=== PATIENT | male | born 1960 | race African-American/Black ===

== ENCOUNTER 2021-08-07 18:54 | Emergency (ER) | payer MEDICAID, OTHER, SELFPAY ==
--- NOTE | 2021-08-07 19:26 | ECG_ITS ---
Test Reason : PALPITATIONS Blood Pressure : / mmHG Vent. Rate : 065 BPM Atrial Rate : 065 BPM P-R Int : 176 ms QRS Dur : 102 ms QT Int : 398 ms P-R-T Axes : 039 004 075 degrees QTc Int : 413 ms Normal sinus rhythm Minimal voltage criteria for LVH, may be normal variant ( [place] product ) Possible Inferior infarct , age undetermined Abnormal ECG When compared with ECG of 23-NOV-2018 17:01, Borderline criteria for Inferior infarct are now Present Referred By: Generic ED Physician Electronically Signed By:Anirudh Spence
[2021-08-07 19:28] VITALS: BP 149/104; PULSE 64; RESP 18; TEMP 36.9; O2SAT 97; BMI 32.5
[2021-08-07 19:42] LABS: MANUAL DIFF FLAG NO
[2021-08-07 19:51] LABS: Basophils Percent Auto 0.4 % (0-2); Eosinophils Absolute Auto 0.1 X10*3/uL (0.0-0.4); Eosinophils Percent Auto 1.1 % (0-4); Hematocrit 40.2 % (42.0-52.0); Lymphocytes Absolute Auto 1.9 X10*3/uL (1.2-4.9); Lymphocytes Percent Auto 41.2 % (20-40); Mean Corpuscular HGB Conc 32.3 g/dl (31.0-36.0); Mean Corpuscular Hemoglobin 27.5 pg (27.0-33.0); Mean Platelet Volume 9.8 fL (9.4-12.4); Monocytes Absolute Auto 0.5 X10*3/uL (0.1-1.2); Monocytes Percent Auto 10.4 % (2-11); Neutrophils Absolute Auto 2.1 x10*3/uL (2.0-8.3); Neutrophils Percent Auto 46.9 % (45-73); Platelet Count 236 X10*3/uL (160-400); Red Blood Count 4.73 X10*6/uL (4.60-5.80); White Blood Count 4.5 X10*3/uL (4.8-10.8)
[2021-08-07 19:58] LABS: Anion Gap 13 (12-20); Blood Urea Nitrogen 15 mg/dL (9-16); Calcium 9.6 mg/dL (8.4-10.2); Carbon Dioxide 24 mmol/L (22-29); Chloride 109 mmol/L (96-108); Creatinine Clr Calc Pharmacy 71.3; Estimated Glomerular Filt Rate 59; Glucose Random 109 mg/dL (60-115); Potassium 3.8 mmol/L (3.3-5.1); Sodium 142 mmol/L (135-145)
[2021-08-07 20:03] LABS: Troponin-I High Sensitivity 8.4 ng/L (<3.5-35.0)
--- NOTE | 2021-08-07 21:59 | ED.ARRPALP ---
HPI - Arrhythmia/Palpitations General Chief Complaint: Arrhythmia/Palpitations Stated Complaint: irregular heartbeat Time Seen by Provider: 08/07/21 21:59 Source: patient Mode of arrival: ambulatory Limitations: no limitations History of Present Illness HPI narrative: Patient with hypertension on amlodipine and metoprolol in complaining of feeling of palpitation/extra beat for last 2 days got worse for last 6 hours when arrived heart rate was only 64 beats per minute EKG was without any PVCs. Also complaining of cramping in the right leg patient has evaluated by equipment hire manager last year with Holter monitoring and full cardiac workup was negative Related Data Allergies Allergy/AdvReac Type Severity Reaction Status Date / Time No Known Allergies Allergy Unverified 12/02/19 18:15 Review of Systems Review of Systems: Yes all other systems are reviewed and are negative REPLACED BY [facility] Social History Social History Alcohol intake: current Alcohol intake frequency: holidays/special occasions only Patient Tobacco Use Status: Never used Tobacco Use of substances other than those prescribed or required for medical reasons: No Advance Directives: No Advance Directives Information Provided: No Physical Exam Vital Signs: Vital Signs: Last Vital Signs Temp 98.5 F 08/08/21 00:02 Pulse 61 08/08/21 00:02 Resp 18 08/08/21 00:02 BP 154/93 H 08/08/21 00:02 Pulse Ox 98 08/08/21 00:02 BMI result Body Mass Index 32.5 Appearance: Alert. Oriented X3. No acute distress. Eyes: PERRLA, No Nystagmus ENT: Pharynx normal. Oral Mucosa moist Neck: Normal inspection. Neck supple. CVS: Normal heart rate and rhythm. Pulses normal. Respiratory: No respiratory distress. Equal air entry bilateral, no wheezing/rales/rhonchi Abdomen: Soft and nontender. Bowel sounds are present, no mass palpable, no CVA tenderness Skin: Skin warm and dry. Normal skin color. Normal skin turgor. Extremities: No lower extremity edema. No calf tenderness Neuro: Oriented X 3. No motor deficit. No sensory deficit.No cerebellar signs , cranial nerves II-XII intact MDM - Arrhythmia/Palpitations MDM Narrative Medical decision making narrative: No cardiac arrhythmia noted during stay in the ER vitals are stable cardiac enzyme negative patient had Holter monitoring and cardiac workup done a 1 year ago. Patient advised to follow with equipment hire manager/PCP Medical Records Attestation: I reviewed the patient's medical records. Lab Data Attestation: I reviewed the patient's lab results. Result diagrams: 08/07/21 19:38 08/07/21 19:38 Labs: Lab Results 08/07/21 08/07/21 08/07/21 Range/Units 19:38 19:38 19:38 WBC 4.5 L (4.8-10.8) X10*3/uL RBC 4.73 (4.60-5.80) X10*6/uL Hgb 13.0 L (14.0-18.0) g/dl Hct 40.2 L (42.0-52.0) % MCV 85.0 (80.0-98.0) fL MCH 27.5 (27.0-33.0) pg MCHC 32.3 (31.0-36.0) g/dl RDW 13.0 (11.0-16.0) % Plt Count 236 (160-400) X10*3/uL MPV 9.8 (9.4-12.4) fL Immature Gran % (Auto) 0.0 (0.0-0.4) % Neut % (Auto) 46.9 (45-73) % Lymph % (Auto) 41.2 H (20-40) % [place] % (Auto) 10.4 (2-11) % Eos % (Auto) 1.1 (0-4) % Baso % (Auto) 0.4 (0-2) % Lymph # (Auto) 1.9 (1.2-4.9) X10*3/uL [place] # (Auto) 0.5 (0.1-1.2) X10*3/uL Eos # (Auto) 0.1 (0.0-0.4) X10*3/uL Baso # (Auto) 0.0 (0.0-0.2) X10*3/uL Abs Immat Gran (auto) 0.00 (0.00-0.03) X10*3/uL Absolute Neuts (auto) 2.1 (2.0-8.3) x10*3/uL Absolute Nucleated RBC 0.000 (0.0-0.012) X10*3/uL Nucleated RBC % (auto) 0.0 (0.0-0.2) /100WBC Sodium 142 (135-145) mmol/L Potassium 3.8 (3.3-5.1) mmol/L Chloride 109 H (96-108) mmol/L Carbon Dioxide 24 (22-29) mmol/L Anion Gap 13 (12-20) BUN 15 (9-16) mg/dL Creatinine 1.25 (0.5-1.4) mg/dL Estim Creat Clear Calc 71.3 Estimated GFR 59 Random Glucose 109 (60-115) mg/dL Calcium 9.6 (8.4-10.2) mg/dL Troponin I High Sens 8.4 (<3.5-35.0) ng/L ECG Data Attestation: I personally reviewed and interpreted this ECG as follows: Interpretation: Number sinus rhythm heart rate 65 beats per minute LVH no acute ST-T changes no acute ischemia Discharge Plan Discharge Clinical Impression: Palpitations Patient Disposition: Home, Self-Care Instructions: Heart Palpitations (ED) Additional Instructions: Drink plenty of fluids Follow-up with PCP Report to the ER if passing out episode or worsening of palpitation Interventions: ED Discharge Assessment Last Done: 08/08/21 00:02 Discharge Date/Time: 08/08/21 00:02
[2021-08-07 22:35] VITALS: BP 150/90; PULSE 63; RESP 14; TEMP 37.1; O2SAT 99
[2021-08-08 00:02] VITALS: BP 154/93; PULSE 61; RESP 18; TEMP 36.9; O2SAT 98
== END 2021-08-08 00:02 | disposition home or self-care (01) ==
PROVIDERS: Emergency Provider Internal Medicine
DX: R00.2 Palpitations (principal); I10 Essential (primary) hypertension; Z79.899 Other long term (current) drug therapy
CPT/HCPCS: 36415; 80048; 84484; 85025; 93005; 99283; 99284

== ENCOUNTER 2021-09-12 10:44 | Emergency (ER) | payer MEDICAID, OTHER, SELFPAY ==
--- NOTE | ~2021-09-12 | CT_ITS ---
EXAMINATION: NONCONTRAST HEAD CT NONCONTRAST CERVICAL SPINE CT INDICATION INFORMATION: Head injury with dizziness and anterior neck pain COMPARISON: Head CT 08/02/2015 TECHNIQUE: Separate noncontrast CT examinations of the head and cervical spine were performed. Coronal and sagittal images were created for each examination at the technologist workstation. This CT examination was performed using dose optimization techniques as appropriate, variously including the following: *Automated exposure control *Adjustment of mA and/or kV according to patient size (this includes techniques or standardized protocols for targeted exams where dose is matched to indication/reason for exam; i.e. extremities or head) *Use of iterative reconstruction technique DLP: 781 mGy-cm FINDINGS: HEAD: No intra or extra-axial fluid collection, hemorrhage, or mass. No ventriculomegaly. No midline shift or herniation. Basal cisterns are patent. [place]-white matter differentiation is maintained. No territorial encephalomalacia. No significant volume loss. There is no abnormal attenuation within the brain parenchyma. No calvarial fracture or soft tissue abnormality. The mastoid air cells are well aerated. Mild mucosal thickening in the posterior left ethmoid air cell. CERVICAL SPINE: Alignment: Normal. No subluxation. Vertebra: No acute fracture. No prevertebral soft tissue swelling. Degenerative disc disease: Preserved intervertebral disc heights. Mild anterior endplate proliferative change at C4-C5, C5-C6, and C6-C7 compatible with mild degenerative disc disease. Other findings: No cervical lymphadenopathy. Visualized major salivary glands and thyroid gland are unremarkable. Visualized lung apices are clear. CT/CT head/brain wo con IMPRESSION: 1. No intracranial hemorrhage or calvarial fracture. 2. No traumatic subluxation or acute cervical spine fracture.
--- NOTE | ~2021-09-12 | CT_ITS ---
EXAMINATION: NONCONTRAST HEAD CT NONCONTRAST CERVICAL SPINE CT INDICATION INFORMATION: Head injury with dizziness and anterior neck pain COMPARISON: Head CT 08/02/2015 TECHNIQUE: Separate noncontrast CT examinations of the head and cervical spine were performed. Coronal and sagittal images were created for each examination at the technologist workstation. This CT examination was performed using dose optimization techniques as appropriate, variously including the following: *Automated exposure control *Adjustment of mA and/or kV according to patient size (this includes techniques or standardized protocols for targeted exams where dose is matched to indication/reason for exam; i.e. extremities or head) *Use of iterative reconstruction technique DLP: 781 mGy-cm FINDINGS: HEAD: No intra or extra-axial fluid collection, hemorrhage, or mass. No ventriculomegaly. No midline shift or herniation. Basal cisterns are patent. [place]-white matter differentiation is maintained. No territorial encephalomalacia. No significant volume loss. There is no abnormal attenuation within the brain parenchyma. No calvarial fracture or soft tissue abnormality. The mastoid air cells are well aerated. Mild mucosal thickening in the posterior left ethmoid air cell. CERVICAL SPINE: Alignment: Normal. No subluxation. Vertebra: No acute fracture. No prevertebral soft tissue swelling. Degenerative disc disease: Preserved intervertebral disc heights. Mild anterior endplate proliferative change at C4-C5, C5-C6, and C6-C7 compatible with mild degenerative disc disease. Other findings: No cervical lymphadenopathy. Visualized major salivary glands and thyroid gland are unremarkable. Visualized lung apices are clear. CT/CT cervical spine wo con IMPRESSION: 1. No intracranial hemorrhage or calvarial fracture. 2. No traumatic subluxation or acute cervical spine fracture.
--- NOTE | ~2021-09-12 | XR_ITS ---
EXAMINATION: XR CHEST CLINICAL INFORMATION: Generalized weakness and dizziness 3 days status post head injury COMPARISON: Chest x-ray 09/12/2021 TECHNIQUE: 2 views of the chest were obtained. FINDINGS: Mild atelectasis/scarring versus prominent pericardial fat at the left lung base, unchanged. The lungs are otherwise clear. No airspace consolidation, pleural effusion, or pneumothorax. The cardiomediastinal silhouette is within normal limits. No acute osseous injury. XR/XR chest 2V IMPRESSION: No acute pulmonary process.
[2021-09-12 10:47] VITALS: BP 150/101; PULSE 73; RESP 17; TEMP 36.5; O2SAT 97; BMI 35.1
--- NOTE | 2021-09-12 10:52 | ECG_ITS ---
Test Reason : dizziness Blood Pressure : / mmHG Vent. Rate : 066 BPM Atrial Rate : 066 BPM P-R Int : 178 ms QRS Dur : 090 ms QT Int : 378 ms P-R-T Axes : 043 011 067 degrees QTc Int : 396 ms Sinus rhythm with occasional Premature ventricular complexes Possible Inferior infarct (cited on or before 07-AUG-2021) Abnormal ECG When compared with ECG of 07-AUG-2021 19:23, Premature ventricular complexes are now Present Referred By: Generic ED Physician Electronically Signed By:VERO PEÑA
[2021-09-12 11:05] LABS: MANUAL DIFF FLAG NO
[2021-09-12 11:07] LABS: Basophils Percent Auto 0.5 % (0-2); Eosinophils Percent Auto 0.7 % (0-4); Hematocrit 42.1 % (42.0-52.0); Hemoglobin 13.7 g/dl (14.0-18.0); Imm Gran Abs Auto 0.01 X10*3/uL (0.00-0.03); Imm Gran Pct Auto 0.2 % (0.0-0.4); Lymphocytes Percent Auto 47.4 % (20-40); Mean Corpuscular HGB Conc 32.5 g/dl (31.0-36.0); Mean Corpuscular Hemoglobin 27.6 pg (27.0-33.0); Mean Corpuscular Volume 84.9 fL (80.0-98.0); Mean Platelet Volume 9.5 fL (9.4-12.4); Monocytes Absolute Auto 0.4 X10*3/uL (0.1-1.2); Monocytes Percent Auto 8.5 % (2-11); Neutrophils Absolute Auto 1.8 x10*3/uL (2.0-8.3); Neutrophils Percent Auto 42.7 % (45-73); Platelet Count 219 X10*3/uL (160-400); Red Blood Count 4.96 X10*6/uL (4.60-5.80); Red Cell Distribution Width 12.9 % (11.0-16.0); White Blood Count 4.2 X10*3/uL (4.8-10.8)
[2021-09-12 11:13] LABS: Prothrombin Time 11.6 SEC (10.0-13.1)
[2021-09-12 11:16] LABS: Partial Thromboplastin Time 30.3 SEC (24.1-38.0)
[2021-09-12 11:22] LABS: Alanine Aminotransferase 26 U/L (0-40); Albumin Level 4.3 g/dL (3.5-5.0); Alkaline Phosphatase 74 U/L (39-117); Anion Gap 12 (12-20); Aspartate Amino Transferase 25 U/L (5-37); Bilirubin Total 0.7 mg/dL (0.0-1.0); Blood Urea Nitrogen 15 mg/dL (9-16); Calcium 9.4 mg/dL (8.4-10.2); Carbon Dioxide 24 mmol/L (22-29); Chloride 108 mmol/L (96-108); Creatinine Clr Calc Pharmacy 79.2; Estimated Glomerular Filt Rate > 60; Glucose Random 117 mg/dL (60-115); Potassium 4.7 mmol/L (3.3-5.1); Sodium 139 mmol/L (135-145); Total Protein 7.4 g/dL (6.5-8.0)
[2021-09-12 11:29] LABS: Troponin-I High Sensitivity 5.5 ng/L (<3.5-35.0)
[2021-09-12] MEDS: Ondansetron ODT 4 MG TAB.RAPDIS TRANSLINGU (16:20)
[2021-09-12 16:49] VITALS: BP 168/106; RESP 60; TEMP 35.9; O2SAT 99
[2021-09-12 17:17] LABS: Troponin-I High Sensitivity 5.7 ng/L (<3.5-35.0)
--- NOTE | 2021-09-12 17:19 | ED.HEATRA ---
HPI - Head Injury General Chief complaint: Dizziness Stated complaint: dizziness/head INJ Time Seen by Provider: 09/12/21 16:28 Source: patient Mode of arrival: ambulatory Limitations: no limitations History of Present Illness HPI Narrative: 61-year-old male with a past medical history of hypertension, dyslipidemia, chronic back pain and supraventricular tachycardia presenting to the ED with complaints of a head injury that occurred 3 days ago when he was in his basement trying to do some work and he was climbing a ladder and did not realize that the ceiling was closed with and was and he impacted the ceiling with the top of his head and since then he has been having lightheadedness/dizziness worse in the mornings when he wakes up and has been constant for the past 3 days with associated general weakness and intermittent head pain. He reports that the pain occasionally radiates to the anterior aspect of his neck. He denies any dizziness prior to the injury of his head. He denies any falls or prolonged down time. He reports that he takes a baby aspirin daily otherwise no other blood thinners. He denies any changes in vision, nausea/vomiting, chest pain or shortness of breath, dyspnea on exertion, orthopnea, palpitations, paresthesias, neck stiffness, other extremity pain or injury, abdominal pain, lower extremity edema or calf tenderness, focal weakness, trouble walking or balance issues, lower extremity edema or calf tenderness or any other symptoms complaints or concerns at this time. Complaint: head injury and head pain Onset (ago): day(s) (3) Mechanism of Injury: other (hit the ceiling in the basement while climbing with a ladder in his house ) Place: home Loss of Consciousness: no Location of injury: parietal Severity: moderate Quality: aching Radiation: neck Other Injuries: none Context: on aspirin Associated symptoms: other (general weakness, constant dizziness, and head pain ) Related Data Previous Rx's Medication Instructions Recorded acetaminophen 300 mg-codeine 30 mg 1 tab PO Q8H PRN pain #14 tabs 09/12/21 tablet Allergies Allergy/AdvReac Type Severity Reaction Status Date / Time No Known Allergies Allergy Unverified 12/02/19 18:15 Review of Systems Review of Systems: Constitutional : No changes in activity, No lethargy, No recent prior head injury, No agitation, No increased fussiness ENT/Mouth : No Ear Pain, No Nasal discharge/drainage Eyes: No Eye Pain, No Swelling, No Redness, No Foreign Body, No Vision Changes Cardiovascular : No Chest Pain, No SOB Respiratory : No Cough Gastrointestinal : No Nausea, No Vomiting, No abdominal Pain Genitourinary : No Dysuria, No Urinary Frequency, No Urinary Incontinence, No Urgency, No Flank Pain Musculoskeletal : No joint pain, No neck stiffness, No back pain/injury Skin : No lacerations Neuro : + dizziness/general weakness/head pain due to head injury, No unsteady gait, No Paresthesias, No Loss of Consciousness, No altered mental status Denies past medical history of HIV, recent trauma, coagulopathy, recent spinal/ epidural procedure, new medication, URI symptoms, close contacts with similar symptoms, tick bite, or known CO2 exposure. Yes all other systems are reviewed and are negative [facility] Past Medical History Attestation statement: The following information was validated with the patient. Source: old records reviewed and nursing notes reviewed Social History Social History Alcohol intake: current Alcohol intake frequency: a few times a week Alcohol type: beer Patient Tobacco Use Status: Never used Tobacco Use of substances other than those prescribed or required for medical reasons: No Advance Directives: No Advance Directives Information Provided: Yes Physical Exam Vital Signs: Vital Signs: Last Vital Signs Temp 96.6 F L 09/12/21 16:49 Pulse 53 09/12/21 17:22 Resp 16 09/12/21 17:22 BP 148/90 H 09/12/21 17:22 Pulse Ox 100 09/12/21 17:22 O2 Del Method 09/12/21 17:22 BMI result Body Mass Index 35.1 Vital signs have been reviewed as normal and appeared to be correct. Blood pressure normal. Heart rate normal. Respiration rate normal. Temperature normal. Oxygen saturation normal. Appearance: Alert. Oriented X3. No acute distress. Head: Normal external exam. Normocephalic. Atraumatic. Able to rotate head bilaterally. Eyes: PERRLA. EOMI. No nystagmus noted. Conjunctiva and sclera normal. Eyelids normal. Corneal reflex normal. ENT: EAC normal. TM's Normal. Hearing normal. Pharynx normal. Uvula midline. tongue midline. Moist mucous membranes. No trismus noted. No drooling noted. No muffled voice noted. No nystagmus noted. Neck: Normal inspection. Neck supple. FROM. No adenopathy. Trachea midline. Thyroid Normal. No meningeal signs. No neck mass noted. CVS: Normal heart rate and rhythm. Heart sound normal. No murmurs noted. Pulses normal throughout. Respiratory: No respiratory distress. Painless inspiration. Breath sounds normal. No wheezes/rales/rhonchi noted. Chest nontender. No accessory muscle usage noted or decreased air movement noted. Abdomen: Soft and nontender. Bowel sounds normal in all 4 quadrants. No distention noted. No organomegaly noted. No visible injury noted. Back: No CVA tenderness. Full range of motion noted. Skin: Skin warm and dry. Normal skin color. Normal skin turgor. No rashes/lesions/lacerations noted. Extremities: No lower extremity edema. Extremities exhibit normal range of motion. Extremities nontender. Able to shrug shoulders bilaterally and keep up against resistance. Neuro: Oriented X 3. No motor deficit. No sensory deficit. Reflexes normal. Moving all extremities. No focal motor deficits. Cranial nerves II-XI intact bilaterally. Facial strength normal. Normal cognition. Speech normal. Gait normal. Strength 5/5 throughout. No pronator drift. No tremor noted. No fasciculations noted. No rigidity noted. Muscle tone normal throughout. No asterixis noted. [id number] test normal. Heel to antonio test normal. Tandem gait normal. Does not sway with eyes open. Romberg test negative. Rapid alternating movement upper extremity normal. Rapid alternating movement lower extremity normal. Hand drop from overhead Misses face. NIHSS score 0. Course Course Course Narrative: 10:50am - 61-year-old male with a past medical history of hypertension, dyslipidemia, chronic back pain and supraventricular tachycardia presenting to the ED with complaints of a head injury that occurred 3 days ago when he was in his basement trying to do some work and he was climbing a ladder and did not realize that the ceiling was closed with and was and he impacted the ceiling with the top of his head and since then he has been having lightheadedness/dizziness worse in the mornings when he wakes up and has been constant for the past 3 days with associated general weakness and intermittent head pain. He reports that the pain occasionally radiates to the anterior aspect of his neck. He is alert oriented x3. No signs of trauma. Extraocular movements are intact. PERRLA. Posterior cervix is within normal limits no mid sternal tenderness step-offs or deformities noted. Full range of motion. Moving all extremities. No Sears signs or raccoon eyes. No hemotympanum. No septal hematoma noted. Normal steady gait. No focal weakness noted on my exam. Labs were obtained while the patient was in the waiting room and patient has a white blood cell count of 4000. Random glucose 117. Troponin 5.5. Repeat troponin 5.7. Otherwise all other labs are within normal limits and patient does not report any chest pain or shortness of breath or any cardiac related complaints. Plan: Will obtain CT scan of brain/cervical spine, chest x-ray and re-evaluate Reevaluation(s) Reevaluation #1: - CT scan of brain and cervical spine revealed chronic changes no acute processes noted. Chest x-ray within normal limits no acute processes noted. - therefore at this time patient most likely concussion. Will DC home with symptomatic treatment instructions return if any new or worsening symptoms follow up with primary care provider. Patient understands agrees with this plan. Time: 18:11 [facility] - Head Injury Medical Records Attestation: I reviewed the patient's medical records. Lab Data Attestation: I reviewed the patient's lab results. Result diagrams: 09/12/21 11:09/12/21 11: Labs: Lab Results 09/12/21 09/12/21 09/12/21 Range/Units 11:01 11:01 11:01 WBC 4.2 L (4.8-10.8) X10*3/uL RBC 4.96 (4.60-5.80) X10*6/uL Hgb 13.7 L (14.0-18.0) g/dl Hct 42.1 (42.0-52.0) % MCV 84.9 (80.0-98.0) fL MCH 27.6 (27.0-33.0) pg MCHC 32.5 (31.0-36.0) g/dl RDW 12.9 (11.0-16.0) % Plt Count 219 (160-400) X10*3/uL MPV 9.5 (9.4-12.4) fL Immature Gran % (Auto) 0.2 (0.0-0.4) % Neut % (Auto) 42.7 L (45-73) % Lymph % (Auto) 47.4 H (20-40) % [place] % (Auto) 8.5 (2-11) % Eos % (Auto) 0.7 (0-4) % Baso % (Auto) 0.5 (0-2) % Lymph # (Auto) 2.0 (1.2-4.9) X10*3/uL [place] # (Auto) 0.4 (0.1-1.2) X10*3/uL Eos # (Auto) 0.0 (0.0-0.4) X10*3/uL Baso # (Auto) 0.0 (0.0-0.2) X10*3/uL Abs Immat Gran (auto) 0.01 (0.00-0.03) X10*3/uL Absolute Neuts (auto) 1.8 L (2.0-8.3) x10*3/uL Absolute Nucleated RBC 0.000 (0.0-0.012) X10*3/uL Nucleated RBC % (auto) 0.0 (0.0-0.2) /100WBC PT (10.0-13.1) SEC INR (0.9-1.1) APTT 30.3 (24.1-38.0) SEC Sodium 139 (135-145) mmol/L Potassium 4.7 D (3.3-5.1) mmol/L Chloride 108 (96-108) mmol/L Carbon Dioxide 24 (22-29) mmol/L Anion Gap 12 (12-20) BUN 15 (9-16) mg/dL Creatinine 1.17 (0.5-1.4) mg/dL Estim Creat Clear Calc 79.2 Estimated GFR > 60 Random Glucose 117 H (60-115) mg/dL Calcium 9.4 (8.4-10.2) mg/dL Total Bilirubin 0.7 (0.0-1.0) mg/dL AST 25 (5-37) U/L ALT 26 (0-40) U/L Alkaline Phosphatase 74 (39-117) U/L Troponin I High Sens (<3.5-35.0) ng/L Total Protein 7.4 (6.5-8.0) g/dL Albumin 4.3 (3.5-5.0) g/dL 09/12/21 09/12/21 09/12/21 Range/Units 11:01 11:01 16:48 WBC (4.8-10.8) X10*3/uL RBC (4.60-5.80) X10*6/uL Hgb (14.0-18.0) g/dl Hct (42.0-52.0) % MCV (80.0-98.0) fL MCH (27.0-33.0) pg MCHC (31.0-36.0) g/dl RDW (11.0-16.0) % Plt Count (160-400) X10*3/uL MPV (9.4-12.4) fL Immature Gran % (Auto) (0.0-0.4) % Neut % (Auto) (45-73) % Lymph % (Auto) (20-40) % [place] % (Auto) (2-11) % Eos % (Auto) (0-4) % Baso % (Auto) (0-2) % Lymph # (Auto) (1.2-4.9) X10*3/uL [place] # (Auto) (0.1-1.2) X10*3/uL Eos # (Auto) (0.0-0.4) X10*3/uL Baso # (Auto) (0.0-0.2) X10*3/uL Abs Immat Gran (auto) (0.00-0.03) X10*3/uL Absolute Neuts (auto) (2.0-8.3) x10*3/uL Absolute Nucleated RBC (0.0-0.012) X10*3/uL Nucleated RBC % (auto) (0.0-0.2) /100WBC PT 11.6 (10.0-13.1) SEC INR 1.0 (0.9-1.1) APTT (24.1-38.0) SEC Sodium (135-145) mmol/L Potassium (3.3-5.1) mmol/L Chloride (96-108) mmol/L Carbon Dioxide (22-29) mmol/L Anion Gap (12-20) BUN (9-16) mg/dL Creatinine (0.5-1.4) mg/dL Estim Creat Clear Calc Estimated GFR Random Glucose (60-115) mg/dL Calcium (8.4-10.2) mg/dL Total Bilirubin (0.0-1.0) mg/dL AST (5-37) U/L ALT (0-40) U/L Alkaline Phosphatase (39-117) U/L Troponin I High Sens 5.5 5.7 (<3.5-35.0) ng/L Total Protein (6.5-8.0) g/dL Albumin (3.5-5.0) g/dL Imaging Data Chest x-ray: Attestation: I personally reviewed and interpreted this imaging study as follows: Radiologist's impression: FINDINGS: Mild atelectasis/scarring versus prominent pericardial fat at the left lung base, unchanged. The lungs are otherwise clear. No airspace consolidation, pleural effusion, or pneumothorax. The cardiomediastinal silhouette is within normal limits. No acute osseous injury. XR/XR chest 2V IMPRESSION: No acute pulmonary process. CT brain/cervical spine without contrast: Attestation: I personally reviewed and interpreted this imaging study as follows: Radiologist's impression: FINDINGS: HEAD: No intra or extra-axial fluid collection, hemorrhage, or mass. No ventriculomegaly. No midline shift or herniation. Basal cisterns are patent. [place]-white matter differentiation is maintained. No territorial encephalomalacia. ?No significant volume loss. There is no abnormal attenuation within the brain parenchyma. No calvarial fracture or soft tissue abnormality. ?The mastoid air cells are well aerated. Mild mucosal thickening in the posterior left ethmoid air cell. CERVICAL SPINE: Alignment: Normal. No subluxation. Vertebra: No acute fracture. No prevertebral soft tissue swelling. Degenerative disc disease: Preserved intervertebral disc heights. Mild anterior endplate proliferative change at C4-C5, C5-C6, and C6-C7 compatible with mild degenerative disc disease. Other findings: No cervical lymphadenopathy. Visualized major salivary glands and thyroid gland are unremarkable. Visualized lung apices are clear. CT/CT head/brain wo con IMPRESSION: ? 1. No intracranial hemorrhage or calvarial fracture. 2. No traumatic subluxation or acute cervical spine fracture. ECG Data Attestation: I personally reviewed and interpreted this ECG as follows: ECG interpretation date: 09/12/21 ECG interpretation time: 10:54 Interpretation: EKG revealed sinus rhythm with occasional PVCs with ventricular rate of [address] abnormalities no acute ischemic changes noted. Similar compared to prior EKG 08/07/[address] Shelby Mohan who reviewed the EKG for 2nd time. Discharge Plan Discharge Clinical Impression: Concussion, Head injury Patient Disposition: Home, Self-Care Instructions: Concussion (ED), Head Injury (ED) Prescriptions: New acetaminophen-codeine 300-30 mg tablet 1 tab PO Q8H PRN (Reason: pain) Qty: 14 0RF Referrals: [facility] [Primary Care Provider] - 2 days
[2021-09-12 17:22] VITALS: BP 148/90; PULSE 53; RESP 16; O2SAT 100
== END 2021-09-12 18:40 | disposition home or self-care (01) ==
PROVIDERS: Physician Assistant Medical; Emergency Provider Emergency Medicine
DX: S06.0X0A Concussion without loss of consciousness, initial encounter (principal); W22.09XA Striking against other stationary object, initial encounter; R42 Dizziness and giddiness; I10 Essential (primary) hypertension; E78.5 Hyperlipidemia, unspecified; Y93.89 Activity, other specified; Y92.018 Other place in single-family (private) house as the place of occurrence of the external cause; Y99.9 Unspecified external cause status
CPT/HCPCS: 36415; 70450; 71046; 72125; 80053; 84484; 85025; 85610; 85730; 93005; 99284

== ENCOUNTER 2022-02-15 12:30 | Emergency (ER) | payer MEDICAID, OTHER, SELFPAY ==
--- NOTE | ~2022-02-15 | XR_ITS ---
EXAMINATION: XR CHEST CLINICAL INFORMATION: Cardiac arrhythmia COMPARISON: 09/12/2021 TECHNIQUE: 2 views of the chest were obtained. FINDINGS: No significant abnormality is noted involving the heart, lungs, mediastinum, bony thorax or soft tissues. XR/XR chest 2V IMPRESSION: Unremarkable examination.
[2022-02-15 12:53] VITALS: BP 125/82; PULSE 64; RESP 18; TEMP 36.5; O2SAT 98; BMI 33.2
--- NOTE | 2022-02-15 12:57 | ED.GENADULT ---
HPI - General Adult General Chief complaint: Arrhythmia/Palpitations <KRISTYN Varela - Last Filed: 02/15/22 12:59> Stated complaint: Irregular Heartbeat <KRISTYN Varela - Last Filed: 02/15/22 12:59> Time Seen by Provider: 02/15/22 14:27 <KRISTYN Varela - Last Filed: 02/15/22 12:59> Source: patient <KRISTYN Varela - Last Filed: 02/15/22 12:59> Mode of arrival: ambulatory <KRISTYN Varela - Last Filed: 02/15/22 12:59> Limitations: no limitations <KRISTYN Varela - Last Filed: 02/15/22 12:59> History of Present Illness HPI narrative: 61-year-old male presents with history of palpitations that he states typically resolves with laying down and states that he is now having intermittent palpitations associated with chest pain that lasts less than 2 minutes and associated with shortness of breath, pressure-like, without nausea or diaphoresis. Patient states that it seems to resolve when he stands up but the incidence can happen at any time. He denies any personal or family history of early cardiac . He currently is being treated for high blood pressure. <Carrie Noonan MD - Last Filed: 02/15/22 16:31> Related Data Home medications: Previous Rx's Medication Instructions Recorded acetaminophen 300 mg-codeine 30 mg 1 tab PO Q8H PRN pain #14 tabs 09/12/21 tablet <KRISTYN Varela - Last Filed: 02/15/22 12:59> Allergies/adverse reactions: Allergies Allergy/AdvReac Type Severity Reaction Status Date / Time No Known Allergies Allergy Unverified 12/02/19 18:15 <KRISTYN Varela - Last Filed: 02/15/22 12:59> Review of Systems Review of Systems: Pertinent positives and negatives as stated in HPI 10 point review of systems otherwise negative. <Carrie Noonan MD - Last Filed: 02/15/22 16:31> PMFSH Past Medical History Source: nursing notes reviewed <Carrie Noonan MD - Last Filed: 02/15/22 16:31> Social History Social History: Social History Alcohol intake: current Alcohol intake frequency: holidays/special occasions only Alcohol type: beer Patient Tobacco Use Status: Never used Tobacco Smoked in Last 30 Days: No Advance Directives: No Advance Directives Information Provided: Yes <KRISTYN Varela - Last Filed: 02/15/22 12:59> Physical Exam ED Vital Signs: Vital Signs - 24 hr 02/15/22 12:53 02/15/22 15:21 Temperature 97.7 F 98.4 F Pulse Rate 64 60 Respiratory Rate 18 17 Blood Pressure 125/82 120/87 Pulse Oximetry 98 99 Oxygen Delivery Method Room Air Room Air BMI result Body Mass Index 33.2 <KRISTYN Varela Last Filed: 02/15/22 12:59> Vital Signs - 24 hr 02/15/22 12:53 02/15/22 15:21 Temperature 97.7 F 98.4 F Pulse Rate 64 60 Respiratory Rate 18 17 Blood Pressure 125/82 120/87 Pulse Oximetry 98 99 Oxygen Delivery Method Room Air Room Air BMI result Body Mass Index 33.2 VITAL SIGNS: Reviewed. GENERAL: Well developed, well nourished, in no acute distress. HEAD: Normocephalic/atraumatic EYES: PERRLA, EOMI EARS: Ext canals without abnormality OROPHARYNX: no oral lesions noted, posterior pharynx clear LUNGS: Normal breath sounds. No adventitious sounds or accessory muscle use. SpO2<98> CARDIOVASCULAR: Regular rate and rhythm without noted murmurs, no JVD or lower extremity edema. ABDOMEN: Soft, non-tender, non-distended with bowel sounds. MUSCULOSKELETAL: No tenderness, deformities, or effusions noted on gross inspection. EXTREMITIES: No cyanosis, clubbing or edema. SKIN: Inspection of the skin reveals no rashes NEUROLOGIC: Alert and oriented x 4. Strength and sensation to light touch were grossly intact x 4. <Carrie Noonan MD - Last Filed: 02/15/22 16:31> Course Course Course Narrative: RME performed by Yu Bess PA-C. Patient is a 61 year old male presenting to the emergency department with feeling like he has an irregular heart beat. CBC, CMP, EKG, CXR, Troponin, and BNP ordered. Patient placed back in waiting room pending bed availability and results. <KRISTYN Varela Last Filed: 02/15/22 12:59> RME performed by Yu Bess PA-C. Patient is a 61 year old male presenting to the emergency department with feeling like he has an irregular heart beat. CBC, CMP, EKG, CXR, Troponin, and BNP ordered. Patient placed back in waiting room pending bed availability and results. 61-year-old male with history and clinical presentation after review of all investigations benign palpitations, and less likely anginal symptoms, however your serial troponins remained detectable without any elevation no acute changes on EKG. All results discussed with patient at bedside, blood pressure appears to be well controlled. I still think that it is advisable that the patient undergo stress testing and this was communicated with him and a referral was provided to him for follow-up with Cardiology. <Carrie Noonan MD - Last Filed: 02/15/22 16:31> Medical Decision Making Lab Data Result diagrams: : 02/15/22 13:08 02/15/22 13:07 <KRISTYN Varela - Last Filed: 02/15/22 12:59> Labs: Lab Results 02/15/22 02/15/22 02/15/22 Range/Units 13:07 13:07 13:07 WBC (4.8-10.8) X10*3/uL RBC (4.60-5.80) X10*6/uL Hgb (14.0-18.0) g/dl Hct (42.0-52.0) % MCV (80.0-98.0) fL MCH (27.0-33.0) pg MCHC (31.0-36.0) g/dl RDW (11.0-16.0) % Plt Count (160-400) X10*3/uL MPV (9.4-12.4) fL Immature Gran % (Auto) (0.0-0.4) % Neut % (Auto) (45-73) % Lymph % (Auto) (20-40) % [place] % (Auto) (2-11) % Eos % (Auto) (0-4) % Baso % (Auto) (0-2) % Lymph # (Auto) (1.2-4.9) X10*3/uL [place] # (Auto) (0.1-1.2) X10*3/uL Eos # (Auto) (0.0-0.4) X10*3/uL Baso # (Auto) (0.0-0.2) X10*3/uL Abs Immat Gran (auto) (0.00-0.03) X10*3/uL Absolute Neuts (auto) (2.0-8.3) x10*3/uL Absolute Nucleated RBC (0.0-0.012) X10*3/uL Nucleated RBC % (auto) (0.0-0.2) /100WBC Sodium 140 (135-145) mmol/L Potassium 3.9 (3.3-5.1) mmol/L Chloride 106 (96-108) mmol/L Carbon Dioxide 24 (22-29) mmol/L Anion Gap 14 (12-20) BUN 22 H (9-16) mg/dL Creatinine 1.23 (0.5-1.4) mg/dL Estim Creat Clear Calc 73.3 Estimated GFR 60 Random Glucose 95 (60-115) mg/dL Calcium 9.8 (8.4-10.2) mg/dL Total Bilirubin 0.6 (0.0-1.0) mg/dL AST 23 (5-37) U/L ALT 29 (0-40) U/L Alkaline Phosphatase 63 (39-117) U/L Troponin I High Sens 7.3 (<3.5-35.0) ng/L B-Natriuretic Peptide 29 (<100) pg/mL Total Protein 7.3 (6.5-8.0) g/dL Albumin 4.3 (3.5-5.0) g/dL 02/15/22 02/15/22 Range/Units 13:08 15:20 WBC 5.6 (4.8-10.8) X10*3/uL RBC 4.82 (4.60-5.80) X10*6/uL Hgb 13.4 L (14.0-18.0) g/dl Hct 40.5 L (42.0-52.0) % MCV 84.0 (80.0-98.0) fL MCH 27.8 (27.0-33.0) pg MCHC 33.1 (31.0-36.0) g/dl RDW 12.5 (11.0-16.0) % Plt Count 208 (160-400) X10*3/uL MPV 9.7 (9.4-12.4) fL Immature Gran % (Auto) 0.2 (0.0-0.4) % Neut % (Auto) 42.5 L (45-73) % Lymph % (Auto) 45.1 H (20-40) % [place] % (Auto) 10.6 (2-11) % Eos % (Auto) 1.1 (0-4) % Baso % (Auto) 0.5 (0-2) % Lymph # (Auto) 2.5 (1.2-4.9) X10*3/uL [place] # (Auto) 0.6 (0.1-1.2) X10*3/uL Eos # (Auto) 0.1 (0.0-0.4) X10*3/uL Baso # (Auto) 0.0 (0.0-0.2) X10*3/uL Abs Immat Gran (auto) 0.01 (0.00-0.03) X10*3/uL Absolute Neuts (auto) 2.4 (2.0-8.3) x10*3/uL Absolute Nucleated RBC 0.000 (0.0-0.012) X10*3/uL Nucleated RBC % (auto) 0.0 (0.0-0.2) /100WBC Sodium (135-145) mmol/L Potassium (3.3-5.1) mmol/L Chloride (96-108) mmol/L Carbon Dioxide (22-29) mmol/L Anion Gap (12-20) BUN (9-16) mg/dL Creatinine (0.5-1.4) mg/dL Estim Creat Clear Calc Estimated GFR Random Glucose (60-115) mg/dL Calcium (8.4-10.2) mg/dL Total Bilirubin (0.0-1.0) mg/dL AST (5-37) U/L ALT (0-40) U/L Alkaline Phosphatase (39-117) U/L Troponin I High Sens 6.7 (<3.5-35.0) ng/L B-Natriuretic Peptide (<100) pg/mL Total Protein (6.5-8.0) g/dL Albumin (3.5-5.0) g/dL <KRISTYN Varela - Last Filed: 02/15/22 12:59> Lab Results 02/15/22 02/15/22 02/15/22 Range/Units 13:07 13:07 13:07 WBC (4.8-10.8) X10*3/uL RBC (4.60-5.80) X10*6/uL Hgb (14.0-18.0) g/dl Hct (42.0-52.0) % MCV (80.0-98.0) fL MCH (27.0-33.0) pg MCHC (31.0-36.0) g/dl RDW (11.0-16.0) % Plt Count (160-400) X10*3/uL MPV (9.4-12.4) fL Immature Gran % (Auto) (0.0-0.4) % Neut % (Auto) (45-73) % Lymph % (Auto) (20-40) % [place] % (Auto) (2-11) % Eos % (Auto) (0-4) % Baso % (Auto) (0-2) % Lymph # (Auto) (1.2-4.9) X10*3/uL [place] # (Auto) (0.1-1.2) X10*3/uL Eos # (Auto) (0.0-0.4) X10*3/uL Baso # (Auto) (0.0-0.2) X10*3/uL Abs Immat Gran (auto) (0.00-0.03) X10*3/uL Absolute Neuts (auto) (2.0-8.3) x10*3/uL Absolute Nucleated RBC (0.0-0.012) X10*3/uL Nucleated RBC % (auto) (0.0-0.2) /100WBC Sodium 140 (135-145) mmol/L Potassium 3.9 (3.3-5.1) mmol/L Chloride 106 (96-108) mmol/L Carbon Dioxide 24 (22-29) mmol/L Anion Gap 14 (12-20) BUN 22 H (9-16) mg/dL Creatinine 1.23 (0.5-1.4) mg/dL Estim Creat Clear Calc 73.3 Estimated GFR 60 Random Glucose 95 (60-115) mg/dL Calcium 9.8 (8.4-10.2) mg/dL Total Bilirubin 0.6 (0.0-1.0) mg/dL AST 23 (5-37) U/L ALT 29 (0-40) U/L Alkaline Phosphatase 63 (39-117) U/L Troponin I High Sens 7.3 (<3.5-35.0) ng/L B-Natriuretic Peptide 29 (<100) pg/mL Total Protein 7.3 (6.5-8.0) g/dL Albumin 4.3 (3.5-5.0) g/dL 02/15/22 02/15/22 Range/Units 13:08 15:20 WBC 5.6 (4.8-10.8) X10*3/uL RBC 4.82 (4.60-5.80) X10*6/uL Hgb 13.4 L (14.0-18.0) g/dl Hct 40.5 L (42.0-52.0) % MCV 84.0 (80.0-98.0) fL MCH 27.8 (27.0-33.0) pg MCHC 33.1 (31.0-36.0) g/dl RDW 12.5 (11.0-16.0) % Plt Count 208 (160-400) X10*3/uL MPV 9.7 (9.4-12.4) fL Immature Gran % (Auto) 0.2 (0.0-0.4) % Neut % (Auto) 42.5 L (45-73) % Lymph % (Auto) 45.1 H (20-40) % [place] % (Auto) 10.6 (2-11) % Eos % (Auto) 1.1 (0-4) % Baso % (Auto) 0.5 (0-2) % Lymph # (Auto) 2.5 (1.2-4.9) X10*3/uL [place] # (Auto) 0.6 (0.1-1.2) X10*3/uL Eos # (Auto) 0.1 (0.0-0.4) X10*3/uL Baso # (Auto) 0.0 (0.0-0.2) X10*3/uL Abs Immat Gran (auto) 0.01 (0.00-0.03) X10*3/uL Absolute Neuts (auto) 2.4 (2.0-8.3) x10*3/uL Absolute Nucleated RBC 0.000 (0.0-0.012) X10*3/uL Nucleated RBC % (auto) 0.0 (0.0-0.2) /100WBC Sodium (135-145) mmol/L Potassium (3.3-5.1) mmol/L Chloride (96-108) mmol/L Carbon Dioxide (22-29) mmol/L Anion Gap (12-20) BUN (9-16) mg/dL Creatinine (0.5-1.4) mg/dL Estim Creat Clear Calc Estimated GFR Random Glucose (60-115) mg/dL Calcium (8.4-10.2) mg/dL Total Bilirubin (0.0-1.0) mg/dL AST (5-37) U/L ALT (0-40) U/L Alkaline Phosphatase (39-117) U/L Troponin I High Sens 6.7 (<3.5-35.0) ng/L B-Natriuretic Peptide (<100) pg/mL Total Protein (6.5-8.0) g/dL Albumin (3.5-5.0) g/dL <Carrie Noonan MD - Last Filed: 02/15/22 16:31> ECG Data Attestation: I personally reviewed and interpreted this ECG as follows: <Carrie Noonan MD - Last Filed: 02/15/22 16:31> Prior ECG tracings: available for review <Carrie Noonan MD - Last Filed: 02/15/22 16:31> Interpretation: Sinus bradycardia, HR-59, no STEMI, MT/QRS/QTC is within normal limits. <Carrie Noonan MD - Last Filed: 02/15/22 16:31> Discharge Plan Discharge Clinical Impression: Heart palpitations, Hypertension <KRISTYN Varela - Last Filed: 02/15/22 12:59> Patient Disposition: Home, Self-Care <KRISTYN Varela - Last Filed: 02/15/22 12:59> Instructions: Heart Palpitations (ED), Hypertension (ED), DASH Eating Plan (ED) <KRISTYN Varela - Last Filed: 02/15/22 12:59> Additional Instructions: 1. Resume all home medications as prescribed. 2. Avoid caffeinated products as this may contribute to the sensation of palpitations. 3. I highly recommend that you pursue cardiac stress testing and a referral to follow-up with cardiology has been provided. 4. Follow-up with primary care provider in the next 1-2 days for re-evaluation further outpatient management. Return to the ER for any worsening symptoms. <KRISTYN Varela - Last Filed: 02/15/22 12:59> Prescriptions: No Action acetaminophen-codeine 300-30 mg tablet 1 tab PO Q8H PRN (Reason: pain) Qty: 14 0RF <KRISTYN Varela - Last Filed: 02/15/22 12:59> Referrals: [facility] [Primary Care Provider] - Anirudh Spence MD [Physician] - (61-year-old male with history of hypertension and hyperlipidemia comes in with persistent palpitations and questionable pain associated with these palpitations that is transient in nature and does not appear to be related to exertion. Serial troponins are chronically detectable and stable, no acute changes on EKG but given hypertension hyperlipidemia history he may benefit from stress test.) <KRISTYN Varela - Last Filed: 02/15/22 12:59>
[2022-02-15 13:15] LABS: Basophils Percent Auto 0.5 % (0-2); Eosinophils Absolute Auto 0.1 X10*3/uL (0.0-0.4); Eosinophils Percent Auto 1.1 % (0-4); Hematocrit 40.5 % (42.0-52.0); Hemoglobin 13.4 g/dl (14.0-18.0); Imm Gran Abs Auto 0.01 X10*3/uL (0.00-0.03); Imm Gran Pct Auto 0.2 % (0.0-0.4); Lymphocytes Absolute Auto 2.5 X10*3/uL (1.2-4.9); Lymphocytes Percent Auto 45.1 % (20-40); MANUAL DIFF FLAG NO; Mean Corpuscular HGB Conc 33.1 g/dl (31.0-36.0); Mean Corpuscular Hemoglobin 27.8 pg (27.0-33.0); Mean Platelet Volume 9.7 fL (9.4-12.4); Monocytes Absolute Auto 0.6 X10*3/uL (0.1-1.2); Monocytes Percent Auto 10.6 % (2-11); Neutrophils Absolute Auto 2.4 x10*3/uL (2.0-8.3); Neutrophils Percent Auto 42.5 % (45-73); Platelet Count 208 X10*3/uL (160-400); Red Blood Count 4.82 X10*6/uL (4.60-5.80); Red Cell Distribution Width 12.5 % (11.0-16.0); White Blood Count 5.6 X10*3/uL (4.8-10.8)
[2022-02-15 13:41] LABS: Alanine Aminotransferase 29 U/L (0-40); Albumin Level 4.3 g/dL (3.5-5.0); Alkaline Phosphatase 63 U/L (39-117); Anion Gap 14 (12-20); Aspartate Amino Transferase 23 U/L (5-37); Blood Urea Nitrogen 22 mg/dL (9-16); Calcium 9.8 mg/dL (8.4-10.2); Carbon Dioxide 24 mmol/L (22-29); Chloride 106 mmol/L (96-108); Creatinine Clr Calc Pharmacy 73.3; Estimated Glomerular Filt Rate 60; Glucose Random 95 mg/dL (60-115); Potassium 3.9 mmol/L (3.3-5.1); Sodium 140 mmol/L (135-145); Total Protein 7.3 g/dL (6.5-8.0)
[2022-02-15 14:17] LABS: Bilirubin Total 0.6 mg/dL (0.0-1.0)
[2022-02-15 14:18] LABS: Troponin-I High Sensitivity 7.3 ng/L (<3.5-35.0)
--- NOTE | 2022-02-15 14:27 | ECG_ITS ---
Test Reason : chest pain Blood Pressure : / mmHG Vent. Rate : 059 BPM Atrial Rate : 059 BPM P-R Int : 172 ms QRS Dur : 104 ms QT Int : 400 ms P-R-T Axes : 059 022 083 degrees QTc Int : 396 ms Sinus bradycardia Nonspecific T wave abnormality Abnormal ECG When compared with ECG of 12-SEP-2021 10:54, Premature ventricular complexes are no longer Present Referred By: Carrie Noonan Electronically Signed By:Anirudh Spence
[2022-02-15 14:45] LABS: B Type Natriuretic Peptide 29 pg/mL (<100)
[2022-02-15 15:21] VITALS: BP 120/87; PULSE 60; RESP 17; TEMP 36.9; O2SAT 99
[2022-02-15 16:04] LABS: Troponin-I High Sensitivity 6.7 ng/L (<3.5-35.0)
--- NOTE | 2022-02-15 16:08 | PC.NURSE ---
patient a/ox4 . perrlla . heart rate regular at 70 beats per minute . breathing even and unlabored . lungs clear throughout . skin warm dry and appropriate for ethnicity . abdomen soft , not tender and positive for bowel sounds in all four quadrants . patient presented to ED for episodes of feeling palpitations while laying down and getting up intermittently but is no longer feeling them now . patient is currently on lunchroom monitor . patient is aware of plan of care .
--- NOTE | 2022-02-15 16:51 | PC.NURSE ---
Patient a/ox4 . VSS . Breathing even and unlabored . Went over discharge instructions ordered by provider. Follow up information given for follow up with cardiology . patient to return to Ed if symptoms worsen . No questions at this time .
== END 2022-02-15 17:01 | disposition home or self-care (01) ==
PROVIDERS: Physician Assistant Medical; Emergency Provider Student in an Organized Health Care Education/Training Program
DX: R07.89 Other chest pain (principal); I49.9 Cardiac arrhythmia, unspecified; R00.2 Palpitations; R06.02 Shortness of breath; I10 Essential (primary) hypertension; Z79.899 Other long term (current) drug therapy
CPT/HCPCS: 36415; 71046; 80053; 83880; 84484; 85025; 93005; 99284

== ENCOUNTER 2023-08-22 15:22 | Outpatient (REF) | payer MEDICAID, OTHER, SELFPAY ==
[2023-08-22 16:34] LABS: Alanine Aminotransferase 25 U/L (0-40); Albumin Level 4.3 g/dL (3.5-5.0); Alkaline Phosphatase 61 U/L (39-117); Anion Gap 10 (12-20); Aspartate Amino Transferase 21 U/L (5-37); Bilirubin Total 0.6 mg/dL (0.0-1.0); Blood Urea Nitrogen 19 mg/dL (9-16); Calcium 9.8 mg/dL (8.4-10.2); Carbon Dioxide 26 mmol/L (22-29); Chloride 110 mmol/L (96-108); Cholesterol 241 mg/dL (<200); Estimated Glomerular Filt Rate 53; Glucose Random 104 mg/dL (60-115); HDL Cholesterol 66 mg/dL (>40); LDL Cholesterol Calculated 152 mg/dL (<100); Potassium 3.7 mmol/L (3.3-5.1); Sodium 142 mmol/L (135-145); Total Protein 7.5 g/dL (6.5-8.0); Triglycerides 116 mg/dL (<150)
[2023-08-22 17:53] LABS: Prostate Specific Antigen 0.91 ng/mL (<0.05-4.0)
== END 2023-08-22 15:23 | disposition home or self-care (01) ==
LOC: HO.HHCL 15:22
PROVIDERS: Visit Provider Registered Nurse
DX: Z00.00 Encounter for general adult medical examination without abnormal findings (principal); E78.2 Mixed hyperlipidemia
CPT/HCPCS: 36415; 80053; 80061; 84153

== ENCOUNTER 2023-08-26 13:16 | Outpatient (REF) | payer MEDICAID, OTHER, SELFPAY ==
[2023-08-26 17:07] LABS: Free T4 (Free Thyroxine) 0.85 ng/dL (0.71-1.85); Thyroid Stimulating Hormone 0.91 uIU/mL (0.32-4.0)
== END 2023-08-26 13:17 | disposition home or self-care (01) ==
LOC: HO.HHCL 13:16
PROVIDERS: Visit Provider Registered Nurse
DX: R00.2 Palpitations (principal)
CPT/HCPCS: 36415; 84439; 84443

== ENCOUNTER 2024-01-19 09:55 | Emergency (ER) | payer MEDICAID, OTHER, SELFPAY ==
--- NOTE | 2024-01-19 | ECG_ITS ---
Test Reason : CHEST PAIN Blood Pressure : / mmHG Vent. Rate : 061 BPM Atrial Rate : 061 BPM P-R Int : 176 ms QRS Dur : 084 ms QT Int : 396 ms P-R-T Axes : 048 016 110 degrees QTc Int : 398 ms Normal sinus rhythm T wave abnormality, consider lateral ischemia Abnormal ECG When compared with ECG of 15-FEB-2022 12:56, No significant change was found Referred By: Generic ED Physician Electronically Signed By:FERNANDA ACEVEDO MD
--- NOTE | ~2024-01-19 | XR_ITS ---
EXAMINATION: XR CHEST CLINICAL INFORMATION: Chest pain COMPARISON: Chest x-ray February 15, 2022 TECHNIQUE: Frontal view of the chest was obtained. FINDINGS: Cardiac silhouette is stable. The lungs are mildly hypoinflated. The lungs are well aerated. There is no lobar consolidation. No pleural effusion or pneumothorax. Subtle linear opacity of the left lung base is most suggestive of atelectasis. No acute osseous abnormality. XR/XR chest 1V IMPRESSION: No acute pulmonary pathology. Electronically signed by: Ramos Ghosh MD 01/19/2024 11:19 AM [facility] [place]
[2024-01-19 09:58] VITALS: BP 170/98; PULSE 60; O2SAT 97
[2024-01-19 10:10] VITALS: BP 146/95; PULSE 61; RESP 19; TEMP 36.8; O2SAT 96; BMI 32.2
--- NOTE | 2024-01-19 10:27 | ED_ITS ---
HPI - Chest Pain General Chief Complaint: Chest Pain Stated Complaint: CHEST PAIN PER EMS Time Seen by Provider: 01/19/24 10:25 Source: patient Mode of arrival: ambulatory Limitations: no limitations History of Present Illness HPI narrative: 63 year old male PMH: SVT, chronic back pain HTN, HLD who presents to the ER with chest pain. MD complaint: chest pain Related Data Previous Rx's ?Medication ?Instructions ?Recorded acetaminophen 300 mg-codeine 30 mg 1 tab PO Q8H PRN pain #14 tabs 09/12/21 tablet Allergies Allergy/AdvReac Type Severity Reaction Status Date / Time No Known Allergies Allergy Unverified 01/19/24 10:13 [facility] Social History Social History Alcohol intake: current Alcohol intake frequency: holidays/special occasions only Alcohol type: beer Patient Tobacco Use Status: Never used Tobacco Smoked in Last 30 Days: No Use of substances other than those prescribed or required for medical reasons: No Advance Directives: No Advance Directives Information Provided: Yes Do you have a plan to hurt others: No Plan Physical Exam 2 Vital Signs: Vital Signs: Last Vital Signs Temp 98.5 F 01/19/24 12:26 Pulse 61 01/19/24 12:26 Resp 17 01/19/24 12:26 BP 138/84 01/19/24 12:26 Pulse Ox 97 01/19/24 12:26 O2 Del Method Room Air 01/19/24 12:26 BMI result Body Mass Index 32.2 Course Course Course Narrative: Patient is sent here for chest pain and weakness. Patient has 2- troponins 3 hours apart patient looks well has normal neuro exam there is no signs of deficits patient just complaining of generalized weakness I do not have a reason to keep the patient here I will discharge this time Medical Decision Making Lab Data 01/19/24 10:21 01/19/24 10:21 Labs: Lab Results 01/19/24 01/19/24 Range/Units 10:21 12:24 WBC 5.4 (4.8-10.8) X10*3/uL RBC 4.86 (4.60-5.80) X10*6/uL Hgb 13.6 L (14.0-18.0) g/dl Hct 41.0 L (42.0-52.0) % MCV 84.4 (80.0-98.0) fL MCH 28.0 (27.0-33.0) pg MCHC 33.2 (31.0-36.0) g/dl RDW 12.9 (11.0-16.0) % Plt Count 203 (160-400) X10*3/uL MPV 9.9 (9.4-12.4) fL Immature Gran % (Auto) 0.2 (0.0-0.4) % Neut % (Auto) 42.7 L (45-73) % Lymph % (Auto) 43.8 H (20-40) % [place] % (Auto) 11.8 H (2-11) % Eos % (Auto) 0.9 (0-4) % Baso % (Auto) 0.6 (0-2) % Lymph # (Auto) 2.4 (1.2-4.9) X10*3/uL [place] # (Auto) 0.6 (0.1-1.2) X10*3/uL Eos # (Auto) 0.1 (0.0-0.4) X10*3/uL Baso # (Auto) 0.0 (0.0-0.2) X10*3/uL Abs Immat Gran (auto) 0.01 (0.00-0.03) X10*3/uL Absolute Neuts (auto) 2.3 (2.0-8.3) x10*3/uL Absolute Nucleated RBC 0.000 (0.0-0.012) X10*3/uL Nucleated RBC % (auto) 0.0 (0.0-0.2) /100WBC Sodium 142 (135-145) mmol/L Potassium 4.0 (3.3-5.1) mmol/L Chloride 109 H (96-108) mmol/L Carbon Dioxide 26 (22-29) mmol/L Anion Gap 11 L (12-20) BUN 17 H (9-16) mg/dL Creatinine 1.26 (0.5-1.4) mg/dL Estim Creat Clear Calc 68.6 Estimated GFR 58 Random Glucose 91 (60-115) mg/dL Calcium 9.4 (8.4-10.2) mg/dL Total Bilirubin 0.9 (0.0-1.0) mg/dL AST 27 (5-37) U/L ALT 42 H (0-40) U/L Alkaline Phosphatase 71 (39-117) U/L Troponin I High Sens 6.5 6.1 (<3.5-35.0) ng/L Total Protein 7.0 (6.5-8.0) g/dL Albumin 4.0 (3.5-5.0) g/dL Influenza Type A (PCR) NEGATIVE (Negative) Influenza Type B (PCR) NEGATIVE (Negative) RSV RNA Qual (PCR) NEGATIVE (Negative) SARS-CoV-2 RNA (RT-PCR) NEGATIVE (Negative) Independent Interpretation I performed an independent interpretation of an: EKG Interpretation: Rate 61 normal sinus rhythm normal intervals no signs of ischemia patient does have some ST changes throughout Scores Heart Score History: -0- slightly suspicious ECG: -0- normal Age: -1- >45 - <65 Risk factory: -2- 3 or more risk factors or treated atherosclerosis Troponin: -0- < or = normal limit Score: 3 Risk: 1.7% Discharge Plan Discharge Clinical Impression: Hypertension, Chest pain, Weakness Patient Disposition: Home, Self-Care Instructions: Chest Pain (DC), Chronic Hypertension (ED), Weakness (ED) Additional Instructions: You were seen today for elevated blood pressure weakness and chest pain. You had labs and x-ray done which were all unremarkable. Please call follow up with her doctor get your blood pressure under control. If you have any other concerns please return to the ER Prescriptions: No Action acetaminophen-codeine 300-30 mg tablet 1 tab PO Q8H PRN (Reason: pain) Qty: 14 0RF Print Language: Armenian
--- NOTE | 2024-01-19 10:29 | PC.NURSE ---
patient from urgent care with cc of chest pain, also endorsing some shortness of breath, patient states it started about 3 hours ago and the pain is in the middle of his chest and radiates to his left side, no pain to palpation or inspiration, denies significant cardiac history. patinet states he has a hx of HTN and HLD, recieved 324mg of asa from the urgent care as well as 0.2mg of clonidine. VSS upon arrival. 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 18g PIV placed in RAC, blood work drawn and sent. patient denies swelling to any extremeties, denies fevers or recent sick contacts, patient states he has some shortness of breath, respirations even and unlabored LSCTA, saturating well on room air, denies cough. awaiting MD blum at this time
[2024-01-19 10:30] LABS: MANUAL DIFF FLAG NO
[2024-01-19 10:31] LABS: Basophils Percent Auto 0.6 % (0-2); Eosinophils Absolute Auto 0.1 X10*3/uL (0.0-0.4); Eosinophils Percent Auto 0.9 % (0-4); Hemoglobin 13.6 g/dl (14.0-18.0); Imm Gran Abs Auto 0.01 X10*3/uL (0.00-0.03); Imm Gran Pct Auto 0.2 % (0.0-0.4); Lymphocytes Absolute Auto 2.4 X10*3/uL (1.2-4.9); Lymphocytes Percent Auto 43.8 % (20-40); Mean Corpuscular HGB Conc 33.2 g/dl (31.0-36.0); Mean Corpuscular Volume 84.4 fL (80.0-98.0); Mean Platelet Volume 9.9 fL (9.4-12.4); Monocytes Absolute Auto 0.6 X10*3/uL (0.1-1.2); Monocytes Percent Auto 11.8 % (2-11); Neutrophils Absolute Auto 2.3 x10*3/uL (2.0-8.3); Neutrophils Percent Auto 42.7 % (45-73); Platelet Count 203 X10*3/uL (160-400); Red Blood Count 4.86 X10*6/uL (4.60-5.80); Red Cell Distribution Width 12.9 % (11.0-16.0); White Blood Count 5.4 X10*3/uL (4.8-10.8)
[2024-01-19 10:54] LABS: Alanine Aminotransferase 42 U/L (0-40); Alkaline Phosphatase 71 U/L (39-117); Anion Gap 11 (12-20); Aspartate Amino Transferase 27 U/L (5-37); Bilirubin Total 0.9 mg/dL (0.0-1.0); Blood Urea Nitrogen 17 mg/dL (9-16); Calcium 9.4 mg/dL (8.4-10.2); Carbon Dioxide 26 mmol/L (22-29); Chloride 109 mmol/L (96-108); Creatinine Clr Calc Pharmacy 68.6; Estimated Glomerular Filt Rate 58; Glucose Random 91 mg/dL (60-115); Sodium 142 mmol/L (135-145)
[2024-01-19 11:04] LABS: Troponin-I High Sensitivity 6.5 ng/L (<3.5-35.0)
[2024-01-19 12:26] VITALS: BP 138/84; PULSE 61; RESP 17; TEMP 36.9; O2SAT 97
[2024-01-19 12:55] LABS: Troponin-I High Sensitivity 6.1 ng/L (<3.5-35.0)
[2024-01-19 13:03] LABS: Influenza A PCR NEGATIVE (Negative); Influenza B PCR NEGATIVE (Negative); Resp Syncy Virus RNA Qual PCR NEGATIVE (Negative); SARS COV2 PCR INHOUSE NEGATIVE (Negative)
[2024-01-19 13:39] VITALS: BP 138/84; PULSE 61; RESP 17; TEMP 36.9; O2SAT 97
== END 2024-01-19 13:42 | disposition home or self-care (01) ==
PROVIDERS: Emergency Provider Student in an Organized Health Care Education/Training Program; PCP Registered Nurse
DX: I10 Essential (primary) hypertension (principal); R07.9 Chest pain, unspecified; R53.1 Weakness; M54.9 Dorsalgia, unspecified; E78.5 Hyperlipidemia, unspecified; Z03.818 Encounter for observation for suspected exposure to other biological agents ruled out
CPT/HCPCS: 0241U; 36415; 71045; 80053; 84484; 85025; 93005; 99283; 99284

== ENCOUNTER → 2024-01-19 10:08 | Outpatient (BNV) | payer MEDICAID, SELFPAY | PROVIDERS: Emergency Provider Student in an Organized Health Care Education/Training Program; PCP Registered Nurse; Visit Provider Internal Medicine Cardiovascular Disease | DX: R07.9 Chest pain, unspecified (principal); R94.31 Abnormal electrocardiogram [ECG] [EKG] | CPT/HCPCS: 93010 ==

== ENCOUNTER 2024-02-02 17:49 | Outpatient (REF) | payer MEDICAID, OTHER, SELFPAY | END 2024-02-02 17:50 | disposition home or self-care (01) | LOC: HO.HHCLNP 17:49 | PROVIDERS: Visit Provider Internal Medicine | DX: J02.9 Acute pharyngitis, unspecified (principal) | CPT/HCPCS: 87070 ==

== ENCOUNTER 2024-02-13 10:39 | Emergency (ER) | payer MEDICAID, OTHER, SELFPAY ==
[2024-02-13 10:50] VITALS: BP 140/87; PULSE 91; RESP 18; TEMP 36.1; O2SAT 95; BMI 33.2
--- NOTE | 2024-02-13 14:27 | ED_ITS ---
HPI - General Adult General Chief complaint: Ear Problems Stated complaint: L Ear Pain Dizzy Time Seen by Provider: 02/13/24 14:02 Source: patient Mode of arrival: ambulatory Limitations: no limitations History of Present Illness ED Provider: Michael Stringer PA-C HPI narrative: 63 yold male with pmh of HTN presents to the ED for left ear pain for the past two weeks and feels like left ear is swollen. Patient denies any headache, ringing in the ear, chest pain, shortness of breath, dizziness, nausea, vomiting, slurred speech, facial droop, paralysis of extremities, any recent trauma. Patient was prescribed prednisone for 3 days and and he is still having ear pain. Related Data Previous Rx's ?Medication ?Instructions ?Recorded acetaminophen 300 mg-codeine 30 mg 1 tab PO Q8H PRN pain #14 tabs 09/12/21 tablet amoxicillin 875 mg-potassium 1 tab PO Q12H 10 days #20 tabs 02/13/24 clavulanate 125 mg tablet naproxen 500 mg tablet 500 mg PO BID PRN pain 7 days #14 02/13/24 tabs Allergies Allergy/AdvReac Type Severity Reaction Status Date / Time No Known Allergies Allergy Verified 02/13/24 10:51 Review of Systems Review of Systems: Left ear pain Yes all other systems are reviewed and are negative [facility] Social History Social History Alcohol intake: current Alcohol intake frequency: holidays/special occasions only Alcohol type: beer Patient Tobacco Use Status: Never used Tobacco Advance Directives: No Advance Directives Information Provided: Yes Do you have a plan to hurt others: No Plan Physical Exam ED Vital Signs: Vital Signs - 24 hr 02/13/24 10:50 02/13/24 15:07 Temperature 96.9 F 99.6 F Pulse Rate 91 60 Respiratory Rate 18 14 Blood Pressure 140/87 H 161/93 H Pulse Oximetry 95 97 Oxygen Delivery Method Room Air Room Air BMI result Body Mass Index 33.2 Const General: cooperative, healthy appearing, comfortable, no acute distress, well developed, alert, awake and Physically active Orientation/consciousness: patient oriented x3 HENMT Head: Yes normal to inspection, Yes No palpable skull fracture present, Yes normocephalic and Yes atraumatic Ears: hearing grossly normal bilaterally, external ears normal, TM normal on the right, EAC's normal, mastoids normal, no periauricular adenopathy and TM abnormal erythematous on the left Throat: Yes posterior oropharynx normal, Yes tonsils normal and Yes uvula midline Eyes General: appearance normal, both eyes and all related structures Neck Neck: Yes normal visual inspection, Yes full ROM, Yes no lymphadenopathy, Yes no meningeal signs, Yes trachea midline, Yes supple, No anterior neck swelling and No tender Chest Chest palpation & inspection: normal inspection of the chest and normal palpa tion of entire chest wall Resp Effort & Inspection: normal respiratory effort and able to speak in complete sentences Cardio Jugular venous distension: no JVD Heart sounds: S1 normal heart sound present and S2 normal heart sound present GI Inspection: Yes normal to inspection Palpation (GI): Soft to palpation, not firm, nontender, no guarding and not rigid General: Yes no CVA tenderness Back/Spine/Pelvis Back: no CVA tenderness and No back tenderness Skin General skin exam: no rashes or lesions noted, elasticity normal and turgor normal Neuro General: patient oriented x3, gait normal, tone normal, moves all extremities, Normal light touch and pain sensation, no meningeal signs, no focal motor deficits, CN's II-XI intact bilaterally and normal sensation to monofilament Extrem General: Yes normal to inspection, Yes full ROM and Yes capillary refill normal Psych Appearance: grossly normal, well kempt and not disheveled Medical Decision Making Medical Decision Making MDM Narrative: 63-year-old male presents to ED for left ear pain for 2 weeks. Physical exam positive for otitis media. Negative for signs of mastoiditis, osteomyelitis, cerumen impaction, otitis externa. Not suspecting stroke, myocardial i nfarction, temporal arteritis, posterior cerebellar stroke, or electrolyte deficiencies. Patient explained worrisome signs of informed to return to ED immediately. Differential Diagnosis Differential Diagnoses: The differential diagnosis associated with the presentation includes (Otitis media/externa cerumen impaction) Admission/Observation Consideration of admission/observation: Escalation of care including admission/observation considered Independent Historian Clinical information obtained from an independent historian. History obtained from or confirmed by: Other (Patient) External Record Review External record reviewed: Other (Prior visits) Prescription Management I considered prescription management with: Pain Medication and Antibiotic Discharge Plan Discharge Clinical Impression: Otitis media Patient Disposition: Home, Self-Care Instructions: Ear Infection (ED) Additional Instructions: You will be discharged with antibiotics. Return to ED for worsening ear pain, redness swelling in front and behind ear, ear drainage, fever, headache, dizziness, nausea, vomiting, eye pain, slurred speech, facial droop, paralysis of extremities, or any other concerning symptoms. Recommend follow up with primary care provider Prescriptions: New amoxicillin-pot clavulanate 875-125 mg tablet 1 tab PO Q12H 10 Days Qty: 20 0RF naproxen 500 mg tablet 500 mg PO BID PRN (Reason: pain) 7 Days Qty: 14 0RF No Action acetaminophen-codeine 300-30 mg tablet 1 tab PO Q8H PRN (Reason: pain) Qty: 14 0RF Referrals: Jerod Hernandez [Physician] - (Left ear pain) Stand Alone Forms: Work/School Release Interventions: ED Discharge Assessment Last Done: 02/13/24 15:07 Discharge Date/Time: 02/13/24 15:09 Print Language: Latvian
[2024-02-13 15:07] VITALS: BP 161/93; PULSE 60; RESP 14; TEMP 37.6; O2SAT 97
== END 2024-02-13 15:09 | disposition home or self-care (01) ==
PROVIDERS: Emergency Provider Emergency Medicine; PCP Registered Nurse
DX: H66.92 Otitis media, unspecified, left ear (principal); H92.02 Otalgia, left ear; R42 Dizziness and giddiness; I10 Essential (primary) hypertension
CPT/HCPCS: 99282; 99283

== ENCOUNTER 2024-08-20 11:25 | Outpatient (REF) | payer MEDICAID, OTHER, SELFPAY ==
[2024-08-20 13:25] LABS: Appearance Urine Turbid; Color Urine Dark Yellow; Glucose Urine UA Negative (Negative); Leukocyte Esterase Urine Negative (Negative); Nitrite Urine Negative (Negative); PH 5.5 (5.0-9.0); Specific Gravity - Urine 1.025 (1.005-1.025); Urine Blood Negative (Negative); Urine Ketones Trace mg/dL (Negative); Urine Protein Negative (Neg-Trace)
[2024-08-20 13:30] LABS: B Type Natriuretic Peptide 41 pg/mL (<100)
[2024-08-20 13:31] LABS: Bacteria Urine None Seen (None Seen); Hyaline Casts Urine 0-2 /LPF (0-2); RBC Urine 0-2 /HPF (0-2); Squamous Epithelial Cell Urine 0-2 /HPF (0-2); WBC Urine 0-5 /HPF (0-5)
[2024-08-20 14:00] LABS: Estimated Average Glucose 131 mg/dL; Hemoglobin A1c % 6.2 % (<6.0)
[2024-08-20 14:17] LABS: Prostate Specific Antigen 0.61 ng/mL (<0.05-4.0)
[2024-08-20 14:19] LABS: Alanine Aminotransferase 44 U/L (0-40); Albumin Level 4.4 g/dL (3.5-5.0); Alkaline Phosphatase 65 U/L (39-117); Anion Gap 10 (12-20); Aspartate Amino Transferase 30 U/L (5-37); Bilirubin Total 0.7 mg/dL (0.0-1.0); Blood Urea Nitrogen 19 mg/dL (9-16); Carbon Dioxide 29 mmol/L (22-29); Chloride 108 mmol/L (96-108); Cholesterol 228 mg/dL (<200); Estimated Glomerular Filt Rate 59; Glucose Random 96 mg/dL (60-115); HDL Cholesterol 57 mg/dL (>40); LDL Cholesterol Calculated 128 mg/dL (<100); Potassium 3.9 mmol/L (3.3-5.1); Sodium 143 mmol/L (135-145); Total Protein 7.5 g/dL (6.5-8.0); Triglycerides 219 mg/dL (<150)
== END 2024-08-20 11:26 | disposition home or self-care (01) ==
LOC: HO.HHCL 11:25
PROVIDERS: Visit Provider Registered Nurse
DX: I10 Essential (primary) hypertension (principal); R60.0 Localized edema; R35.1 Nocturia
CPT/HCPCS: 36415; 80053; 80061; 81001; 83036; 83880; 84153